=== PATIENT | male | born 1950 ===

== ENCOUNTER 2018-11-04 14:32 | Emergency (ER) | payer SELFPAY ==
[2018-11-04 15:13] VITALS: BP 193/86
[2018-11-04 15:37] LABS: Hematocrit 46.2 % (35.5-45.6); Hemoglobin 15.7 gm/dl (11.8-15.2); Mean Corpuscular HGB Conc 34 % (32-34); Mean Corpuscular Hemoglobin 31 pg (28-32); Mean Corpuscular Volume 90 fl (84-94); Platelet Count 173 K/mm3 (140-440); Red Blood Count 5.13 M/mm3 (3.65-5.03); Red Cell Distribution Width 12.6 % (13.2-15.2)
[2018-11-04 15:51] LABS: BUN/Creatinine Ratio 14; Blood Urea Nitrogen 15 mg/dL (9-20); Calcium 9.4 mg/dL (8.4-10.2); Hemolysis Index 15
[2018-11-04 15:57] LABS: INR 1.02 (0.87-1.13)
[2018-11-04 15:58] LABS: Partial Thromboplastin Time 31.9 Sec. (24.2-36.6)
[2018-11-04] MEDS ORDERED: AFRIN NS ONE (16:35)
[2018-11-04] MEDS ORDERED: TYLENOL PO ONE (16:37)
--- NOTE | 2018-11-04 16:37 | Emergency Department Report ---
ED ENT HPI - General Chief complaint: Dental/Oral Stated complaint: BLEEDING IN MOUTH Time Seen by Provider: 11/04/18 16:31 Source: patient Mode of arrival: Ambulatory Limitations: No Limitations - History of Present Illness Initial comments: Patient is a 68-year-old male comes to the emergency room with a dental pain associated with bleeding. Patient is on Plavix. His primary care told him to come here due to the fact that he is on Plavix. The bleeding is controlled. The patient has gauze in his mouth and is talking on the cell phone. MD complaint: tooth pain - Related Data Previous Rx's Medication Instructions Recorded Last Taken Type Amoxicillin 500 mg PO BID #20 capsule 11/04/18 Unknown Rx Allergies Allergy/AdvReac Type Severity Reaction Status Date / Time No Known Allergies Allergy Unverified 11/04/18 15:13 ED Dental HPI - General Chief complaint: Dental/Oral Stated complaint: BLEEDING IN MOUTH Time Seen by Provider: 11/04/18 16:31 Source: patient Mode of arrival: Ambulatory Limitations: No Limitations - Related Data Previous Rx's Medication Instructions Recorded Last Taken Type Amoxicillin 500 mg PO BID #20 capsule 11/04/18 Unknown Rx Allergies Allergy/AdvReac Type Severity Reaction Status Date / Time No Known Allergies Allergy Unverified 11/04/18 15:13 ED Review of Systems ROS: Stated complaint: BLEEDING IN MOUTH Other details as noted in HPI Comment: All other systems reviewed and negative Constitutional: denies: chills Eyes: denies: eye discharge ENT: dental pain Respiratory: denies: cough Cardiovascular: denies: palpitations Endocrine: denies: excessive sweating Gastrointestinal: denies: nausea Genitourinary: denies: urgency Musculoskeletal: denies: back pain Skin: denies: lesions Neurological: denies: weakness Psychiatric: denies: anxiety Hematological/Lymphatic: easy bleeding, other (she was having no problems with other bleeding. His bleeding is almost expected given that he is on Plavix status post cardiac stents.). denies: as per HPI ED Past Medical Hx - Past Medical History Hx Hypertension: Yes Hx Heart Attack/AMI: Yes - Surgical History Hx Coronary Stent: Yes - Family History Family history: no significant - Social History Smoking Status: Never Smoker Substance Use Type: None - Medications Home Medications: Home Medications Medication Instructions Recorded Confirmed Last Taken Type Amoxicillin 500 mg PO BID #20 capsule 11/04/18 Unknown Rx ED Physical Exam - General Limitations: No Limitations General appearance: alert - Head Head exam: Present: atraumatic - Eye Eye exam: Present: normal appearance, PERRL - ENT ENT exam: Present: normal exam, mucous membranes moist - Neck Neck exam: Present: normal inspection - Respiratory Respiratory exam: Present: normal lung sounds bilaterally - Cardiovascular Cardiovascular Exam: Present: regular rate, other (HR 100 ON EXAM) - GI/Abdominal GI/Abdominal exam: Present: soft - Rectal Rectal exam: Present: deferred - Extremities Exam Extremities exam: Present: normal inspection - Back Exam Back exam: Present: normal inspection - Neurological Exam Neurological exam: Present: alert - Psychiatric Psychiatric exam: Present: normal affect, normal mood - Skin Skin exam: Present: warm, dry ED Course Vital Signs 11/04/18 15:09 Temperature 98 F Pulse Rate 117 H Respiratory 18 Rate Blood Pressure 193/86 O2 Sat by Pulse 99 Oximetry ED Medical Decision Making - Lab Data Result diagrams: 11/04/18 15:25 11/04/18 15:25 - Medical Decision Making Patient has been given amoxicillin for his dental decay. He has an appointment coming with his dentist. I told him that he can have to collaborate her have his dentist and his manager of employee relations collaborate about the use of Plavix while getting dental procedures. I told him that he may need to be off his Plavix for a couple days but this all needed to be done under the direction of the manager of employee relations. In the meantime he should continue taking his Plavix. We were able to stop the bleeding completely with the use of an impregnated gauze with Afrin nasal spray. An ice pack. Patient has been educated on how to continue to maintain the stasis of the blood clot in his mouth. I have asked him not to spit or drink through a straw or do anything else that would create a vacuum which may dislodge the clot in his mouth. Patient is being discharged to home with appropriate follow-up Lab Results 11/04/18 11/04/18 11/04/18 Range/Units 15:25 15:25 15:25 WBC 9.1 (4.5-11.0) K/mm3 RBC 5.13 H (3.65-5.03) M/mm3 Hgb 15.7 H (11.8-15.2) gm/dl Hct 46.2 H (35.5-45.6) % MCV 90 (84-94) fl MCH 31 (28-32) pg MCHC 34 (32-34) % RDW 12.6 L (13.2-15.2) % Plt Count 173 (140-440) K/mm3 PT 13.8 (12.2-14.9) Sec. INR 1.02 (0.87-1.13) APTT 31.9 (24.2-36.6) Sec. Sodium 139 (137-145) mmol/L Potassium 3.7 (3.6-5.0) mmol/L Chloride 99.8 (98-107) mmol/L Carbon Dioxide 23 (22-30) mmol/L Anion Gap 20 mmol/L BUN 15 (9-20) mg/dL Creatinine 1.1 (0.8-1.5) mg/dL Estimated GFR > 60 ml/min BUN/Creatinine Ratio 14 % Glucose 159 H (75-100) mg/dL Calcium 9.4 (8.4-10.2) mg/dL Critical care attestation.: If time is entered above; I have spent that time in minutes in the direct care of this critically ill patient, excluding procedure time. ED Disposition Clinical Impression: Pain, dental, Bleeding gums, Platelet inhibition due to Plavix Disposition: TO HOME OR SELFCARE Is pt being admited?: No Does the pt Need Aspirin: No Condition: Stable Additional Instructions: SEE DENTIST DELONTE FOR EXTRACTION DO NOT USE A STRAW TO DRINK. YOU DO NOT WANT TO APPLY ANY SORT OF TRACTION ON THE BLOOD CLOT THIS IS FORMING. THIS INCLUDES WHEN YOU NEED TO DRAIN YOUR MOUTH- DO NOT SPIT- LET THE SALIVA DROOL FROM YOUR MOUTH. TYLENOL FOR PAIN ICE PACK TO L SIDE OF FACE. DUE TO YOUR PLAVIX YOU WILL BE PRONE TO BLEEDING. YOU WILL NEED TO DISCUSS WITH YOUR DENTIST HOW HE WILL REMOVE YOUR TOOTH. HE WILL LIKELY NEED TO COORDINATE WITH YOUR HEART DOCTOR BECAUSE YOU WILL NEED TO BE OFF PLAVIX FOR A COUPLE DAYS YOUR BLOOD COUNTS AND CLOTTING STUDIES ARE NORMAL TODAY. INFORM THE DENTIST Prescriptions: Amoxicillin 500 mg PO BID #20 capsule Referrals: [facility] [Outside] - 3-5 Days [facility] [Outside] - 3-5 Days Time of Disposition: 17:01
== END 2018-11-04 16:55 | disposition home or self-care (01) ==
LOC: ED 14:32
DX: K08.89 Other specified disorders of teeth and supporting structures (principal); K06.8 Other specified disorders of gingiva and edentulous alveolar ridge; I10 Essential (primary) hypertension; I21.9 Acute myocardial infarction, unspecified; Z95.818 Presence of other cardiac implants and grafts
CPT/HCPCS: 36415; 80048; 85027; 85610; 85730; 99283